=== PATIENT | male | born 1975 | race Caucasian/White ===

== ENCOUNTER 2020-02-01 14:47 | Emergency (ER) | payer BC ==
[2020-02-01] MEDS ORDERED: methylPREDNISolone Sodium Succinate 125 MG/2 ML SDV IM ONE (15:18)
[2020-02-01] MEDS ORDERED: Ketorolac 60 MG/2 ML SDV IM ONE (15:18)
--- NOTE | 2020-02-01 15:45 | EDM.PDOC ---
ED [facility] GENERAL MEDICAL PROBLEM - General Chief Complaint: Back Pain or Injury Stated Complaint: LOWER BACK PAIN Time Seen by Provider: 02/01/20 14:49 Source of Information: Reports: Patient History Limitations: Reports: No Limitations - History of Present Illness INITIAL COMMENTS - FREE TEXT/NARRATIVE: HISTORY AND PHYSICAL: History of present illness: Patient is a 44-year-old male who presents to the ED today with concern of 1 week of low back pain/spasm. Patient states that a week ago he was bending over fixing a drain when he felt a pulling sensation in his low back and since then has had low back pain that he states feels similar to a muscle spasm. Patient states that since then he has had stiffness of his low back with movement. Patient states he was seen at the walk-in clinic and no diagnostics were performed at that time but did receive muscle relaxer prescription which she states works to only some extent. Patient states they offered a steroid injection at that time but he declined it but would like this today if this is possible. Patient denies any loss or retention of bowel bladder function or saddle anesthesia. Patient denies any direct trauma/injury to the back. Patient denies fever, chills, chest pain, shortness of breath, or cough. Denies headache, neck stiff ness, change in vision, syncope, or near syncope. Denies nausea, vomiting, abdominal pain, diarrhea, constipation, or dysuria. Has not noted any blood in urine or stool. Patient has been eating and drinking appropriately. Review of systems: As per history of present illness and below otherwise all systems reviewed and negative. Past medical history: As per history of present illness and as reviewed below otherwise noncontributory. Surgical history: As per history of present illness and as reviewed below otherwise noncontributory. Social history: See social history for further information Family history: As per history of present illness and as reviewed below otherwise noncontributory. Physical exam: General: Patient is alert, oriented, and in no acute distress. Patient sitting comfortably on exam table. HEENT: Atraumatic, normocephalic, pupils equal and reactive bilaterally, negative for conjunctival pallor or scleral icterus, mucous membranes moist, TMs normal bilaterally, throat clear, neck supple, nontender, trachea midline. No drooling or trismus noted. No meningeal signs. No hot potato voice noted. Lungs: Clear to auscultation, breath sounds equal bilaterally, chest nontender. Heart: S1S2, regular rate and rhythm without overt murmur Abdomen: Soft, nondistended, nontender. Negative for masses or hepatosplenomegaly. Negative for costovertebral tenderness. Pelvis: Stable nontender. Genitourinary: Deferred. Rectal: Deferred. Skin: Intact, warm, dry. No lesions or rashes noted. Extremities: Patellar reflexes intact bilaterally. Heel/toe gait intact. No obvious deformity of the complete spine. No step-offs, crepitus, or point tenderness to palpation of the complete spine. Patient does have pain with palpation of the left-sided lumbar paraspinous muscle. Otherwise, atraumatic, negative for cords or calf pain. Neurovascular unremarkable. Neuro: Awake, alert, oriented. Cranial nerves II through XII unremarkable. Cerebellum unremarkable. Motor and sensory unremarkable throughout. Exam nonfocal. Notes: Discussed importance for follow-up with a primary care provider. Voices understanding and is agreeable to plan of care. Denies any further questions or concerns at this time. Diagnostics: lumbar x-ray (patient declines UA) Therapeutics: Toradol, Solu-Medrol IM Prescription: None Impression: Low Back pain Plan: 1. When resting please lay on a flat firm surface. Limit your mobility to prevent muscle stiffness. Get up to ambulate/move around/gentle stretching multiple times throughout the day. May alternate heat and ice to painful areas. 2. Alternate Tylenol / Ibuprofen as needed for back pain. Otherwise, take the priorly prescribed muscle relaxer as directed. 3. Follow-up with your primary care provider as discussed. Return to the ED as needed and as discussed. Definitive disposition and diagnosis as appropriate pending reevaluation and review of above. Left Lower Back Pain Score (Numeric/FACES): 4 - Related Data Allergies Allergy/AdvReac Type Severity Reaction Status Date / Time No Known Allergies Allergy Verified 02/01/20 15:05 Home Meds: Home Meds . [No Known Home Meds] 04/04/16 [History] Past Medical History HEENT History: Reports: None Cardiovascular History: Reports: None Respiratory History: Reports: None Gastrointestinal History: Reports: None Genitourinary History: Reports: None Musculoskeletal History: Reports: Back Pain, Chronic Neurological History: Reports: None Psychiatric History: Reports: None Endocrine/Metabolic History: Reports: None Hematologic History: Reports: None Immunologic History: Reports: None Oncologic (Cancer) History: Reports: None Dermatologic History: Reports: None - Infectious Disease History Infectious Disease History: Reports: Chicken Pox - Past Surgical History Head Surgeries/Procedures: Reports: None HEENT Surgical History: Reports: None Cardiovascular Surgical History: Reports: None Respiratory Surgical History: Reports: None GI Surgical History: Reports: None Male Surgical History: Reports: None Endocrine Surgical History: Reports: None Neurological Surgical History: Reports: None Musculoskeletal Surgical History: Reports: None Oncologic Surgical History: Reports: None Dermatological Surgical History: Reports: None Social & Family History - Family History Family Medical History: Noncontributory - Caffeine Use Caffeine Use: Reports: Coffee, Soda ED ROS GENERAL - Review of Systems Review Of Systems: Comprehensive ROS is negative, except as noted in HPI. ED EXAM, GENERAL - Physical Exam Exam: See Below (see dictation) Course - Vital Signs Last Recorded V/S: Last Vital Signs Temp 97.2 F 02/01/20 15:55 Pulse 102 H 02/01/20 15:55 Resp 15 02/01/20 15:55 BP 117/79 02/01/20 15:55 Pulse Ox 97 02/01/20 15:55 - Orders/Labs/Meds Orders: Active Orders 24 hr Category Date Time Status UA RFX DOMINGA AND CULT IF INDIC [URIN] Stat Lab 02/01/20 15:18 Ordered Meds: Medications Discontinued Medications Generic Name Dose Route Start Last Admin Trade Name Freq PRN Reason Stop Dose Admin Ketorolac Tromethamine 60 mg 02/01/20 15:18 02/01/20 16:11 Toradol IM 02/01/20 15:19 60 mg ONETIME ONE Administration Methylprednisolone Sodium Succinate 125 mg 02/01/20 15:18 02/01/20 16:11 Solu-Medrol IM 02/01/20 15:19 125 mg ONETIME ONE Administration Departure - Departure Time of Disposition: 16:44 Disposition: Home, Self-Care 01 Clinical Impression: Low back pain Qualifiers: Chronicity: acute Back pain laterality: left Sciatica presence: without sciatica Qualified Code(s): M54.5 - Low back pain - Discharge Information Referrals: PCP,None [Primary Care Provider] - Forms: ED Department Discharge Additional Instructions: The following information is given to patients seen in the emergency department who are being discharged to home. This information is to outline your options for follow-up care. We provide all patients seen in our emergency department with a follow-up referral. The need for follow-up, as well as the timing and circumstances, are variable depending upon the specifics of your emergency department visit. If you don't have a primary care physician on staff, we will provide you with a referral. We always advise you to contact your personal physician following an emergency department visit to inform them of the circumstance of the visit and for follow-up with them and/or the need for any referrals to a consulting specialist. The emergency department will also refer you to a specialist when appropriate. This referral assures that you have the opportunity for follow-up care with a specialist. All of these measure are taken in an effort to provide you with optimal care, which includes your follow-up. Under all circumstances we always encourage you to contact your private physician who remains a resource for coordinating your care. When calling for follow-up care, please make the office aware that this follow-up is from your recent emergency room visit. If for any reason you are refused follow-up, please contact the [facility] at and asked to speak to the emergency department charge nurse. [facility] [address] [place] [id number] [place] [address] 1. When resting please lay on a flat firm surface. Limit your mobility to prevent muscle stiffness. Get up to ambulate/move around/gentle stretching multiple times throughout the day. May alternate heat and ice to painful areas. 2. Alternate Tylenol / Ibuprofen as needed for back pain. Otherwise, take the priorly prescribed muscle relaxer as directed. 3. Follow-up with your primary care provider as discussed. Return to the ED as needed and as discussed. Sepsis Event Note (ED) - Focused Exam Vital Signs: Vital Signs Temp Pulse Resp BP Pulse Ox 02/01/20 15:55 97.2 F 102 H 15 117/79 97 - My Orders Last 24 Hours: My Active Orders 02/01/20 15:18 UA RFX DOMINGA AND CULT IF INDIC [URIN] Stat - Assessment/Plan Last 24 Hours: My Active Orders 02/01/20 15:18 UA RFX DOMINGA AND CULT IF INDIC [URIN] Stat
--- NOTE | 2020-02-01 16:07 | CR ---
Lumbar spine: AP, lateral and coned-down lateral views centered to the lumbosacral junction were obtained. Comparison: No previous lumbar spine imaging. Moderate to severe disc space narrowing at L4-5 and moderate disc space narrowing at L5-S1. Other disc spaces are maintained. Anterior osteophytes noted L4-5. Pedicles are intact. Transverse and spinous processes are intact. Sacroiliac joints appear normal. Impression: 1. Degenerative change at L4-5 and L5-S1 as noted above. Diagnostic code #3 This report was dictated in MDT
[2020-02-01 17:01] VITALS: BP 123/74; PULSE 90
== END 2020-02-01 16:50 | disposition home or self-care (01) ==
LOC: MW.ED 14:47
DX: M54.5 Low back pain (principal)
CPT/HCPCS: 72100; 96372; 99283; J1885; J2930

== ENCOUNTER 2024-12-11 07:49 | Emergency (ER) | payer BC ==
[2024-12-11 08:27] LABS: APPEARANCE,URINE CLEAR; GLUCOSE,URINE NEGATIVE (NEGATIVE); OCCULT BLOOD,URINE NEGATIVE (NEGATIVE)
[2024-12-11 08:37] LABS: EPITHELIAL CELLS,URINE RARE (NONE-FEW)
[2024-12-11 08:51] VITALS: BP 143/88
[2024-12-11] MEDS: Ondansetron 4 MG/2 ML SDV IVPUSH ONE (08:57)
[2024-12-11 09:01] VITALS: PULSE 77
[2024-12-11 09:13] LABS: BASOPHILS ABSOLUTE AUTO 0.03 K/uL (0.00-0.20); BASOPHILS PERCENT AUTO 0.3 % (0.0-1.0); EOSINOPHILS ABSOLUTE AUTO 0.13 K/uL (0.00-0.45); EOSINOPHILS PERCENT AUTO 1.5 % (0.0-6.0); IMMATURE GRAN ABSOLUTE AUTO 0.02 K/uL (0.00-0.05); IMMATURE GRAN PERCENT AUTO 0.2 % (0.0-0.4); LYMPHOCYTES ABSOLUTE AUTO 1.98 K/uL (1.00-4.80); LYMPHOCYTES PERCENT AUTO 23.0 % (24.0-44.0); MEAN PLATELET VOLUME 9.6 fL (9.4-12.4); MONOCYTES ABSOLUTE AUTO 0.64 K/uL (0.00-0.80); MONOCYTES PERCENT AUTO 7.4 % (0.0-8.0); NEUTROPHILS ABSOLUTE AUTO 5.80 K/uL (1.80-7.70); NEUTROPHILS PERCENT AUTO 67.6 % (41.0-71.0); NRBC ABSOLUTE 0.00 K/uL (0.00-0.02); NRBC PERCENT 0.0 /100WBC (0.0-0.2); PLATELET COUNT,PLT 302 K/uL (150-400); RED BLOOD CELL COUNT 4.79 M/uL (4.52-5.90); WHITE BLOOD CELL COUNT,WBC 8.60 K/uL (3.9-11.3)
[2024-12-11] MEDS: Iopamidol 755 MG/ML 500 ML Multipack Bottle IVPUSH STA (09:32)
[2024-12-11 09:40] LABS: A/G RATIO 1.2 (0.9-1.6); ALANINE AMINOTRANSFERASE,ALT 35.0 IU/L (14-63); ASPARTATE AMNIOTRANSFERASE,AST 20.0 IU/L (15-37); BILIRUBIN TOTAL 0.7 mg/dL (0.2-1.0); BLOOD UREA NITROGEN,BUN 10.0 mg/dL (7.0-18.0); CARBON DIOXIDE,CO2 26.6 mmol/L (21.0-32.0); CHLORIDE,CL 103.0 mmol/L (98-107); CREATININE 1.0 mg/dL (0.8-1.3); EST CRCL DRUG DOSING (CG) 94.75 mL/min; GLUCOSE RANDOM 106.0 mg/dL (74-106); POTASSIUM,K 3.6 mmol/L (3.5-5.1); PROTEIN TOTAL,TP 7.2 g/dL (6.4-8.2); SODIUM,NA 139.0 mmol/L (136-148)
[2024-12-11 09:43] LABS: ESTIMATED GFR 94.0 mL/min (>60)
[2024-12-11] MEDS ORDERED: Acetaminophen/HYDROcodone 325-5 MG Tab PO ONE (09:48)
== END 2024-12-11 10:11 | disposition home or self-care (01) ==
LOC: MW.ED 07:49
DX: K46.9 Unspecified abdominal hernia without obstruction or gangrene (principal); Z75.3 Unavailability and inaccessibility of health-care facilities
CPT/HCPCS: 36415; 74177; 80053; 81001; 83690; 85025; 96374; 96375; 99284; J2270; J2405; Q9967; 99283

== ENCOUNTER 2025-01-17 08:34 | Day surgery (SDC) | payer BC ==
[~2025-01-17 08:34] MED LIST: Albuterol 0.083% 2.5 MG/3 ML Neb Soln NEB PRN; Naloxone 0.4 MG/ML SDV IVPUSH PRN; Ondansetron 4 MG/2 ML SDV IVPUSH PRN; fentaNYL 50 MCG/ML SDV IVPUSH PRN
[2025-01-17] MEDS: Lactated Ringers 1,000 ML IV SCH (09:14)
[2025-01-17] MEDS ORDERED: Midazolam 1 MG/ML 2 ML SDV ONE (09:17)
[2025-01-17] MEDS: Midazolam 1 MG/ML 2 ML SDV IVPUSH ONE (09:22)
[2025-01-17] MEDS ORDERED: fentaNYL 100 MCG/2 ML SDV ONE ×2 (09:52→11:29)
[2025-01-17] MEDS ORDERED: Propofol 200 MG/20 ML SDV ONE (09:52)
[2025-01-17] MEDS ORDERED: Ketorolac 30 MG/ML SDV ONE (09:52)
[2025-01-17] MEDS ORDERED: Dexamethasone 4 MG/ML 5 ML MDV ONE (09:52)
[2025-01-17] MEDS ORDERED: Ondansetron 4 MG/2 ML SDV ONE (09:52)
[2025-01-17] MEDS ORDERED: Ropivacaine 0.5% 5 MG/ML 30 ML SDV ONE (10:00)
[2025-01-17 14:00] VITALS: BP 131/80; PULSE 69
[2025-01-17] MEDS ORDERED: ceFAZolin 2 GM in Water For Injection, Sterile 20 ML IVPUSH ONE (16:51)
== END 2025-01-17 13:50 | disposition home or self-care (01) ==
LOC: MW.SDS 08:34
PROVIDERS: ATTEND Surgery
DX: K40.90 Unilateral inguinal hernia, without obstruction or gangrene, not specified as recurrent (principal); D17.6 Benign lipomatous neoplasm of spermatic cord; F17.210 Nicotine dependence, cigarettes, uncomplicated
CPT/HCPCS: 49650; A9270; C1781; J0166; J0665; J0690; J1100; J1885; J2003; J2250; J2405; J2704; J2795; J3010; J7120; 00860; 64488; J3490